=== PATIENT | female | born 1940 | race Caucasian/White ===

== ENCOUNTER → 2019-08-23 | Outpatient (CLI) | payer OTHER ==
[~2019-08-23] MED LIST: ASPI-1197 PO; HYDR12.54 PO; LOSA100T58 PO; METO50TA18 PO
== END | disposition home or self-care (01) ==
LOC: SHCH 13:33
PROVIDERS: ATTEND Internal Medicine Cardiovascular Disease
DX: I34.0 Nonrheumatic mitral (valve) insufficiency (principal)
CPT/HCPCS: 93306; 93356